=== PATIENT | male | born 1950 | race Caucasian/White ===

== ENCOUNTER 2018-02-18 08:29 | Outpatient (CLI) | payer OTHER | END 2018-02-18 15:00 | disposition home or self-care (01) | LOC: LAB 08:29 → EDBD 08:29 → LAB 15:00 | DX: I10 Essential (primary) hypertension (principal); E78.00 Pure hypercholesterolemia, unspecified; Z13.0 Encounter for screening for diseases of the blood and blood-forming organs and certain disorders involving the immune mechanism; Z13.220 Encounter for screening for lipoid disorders; Z13.29 Encounter for screening for other suspected endocrine disorder; Z12.5 Encounter for screening for malignant neoplasm of prostate ==

== ENCOUNTER 2018-02-19 12:14 | Outpatient (CLI) | payer OTHER | END 2018-02-19 12:30 | disposition home or self-care (01) | LOC: LAB 12:14 | DX: I10 Essential (primary) hypertension (principal); Z13.0 Encounter for screening for diseases of the blood and blood-forming organs and certain disorders involving the immune mechanism; Z13.220 Encounter for screening for lipoid disorders; Z13.29 Encounter for screening for other suspected endocrine disorder; E78.00 Pure hypercholesterolemia, unspecified; Z12.5 Encounter for screening for malignant neoplasm of prostate ==

== ENCOUNTER 2018-03-21 10:27 | Outpatient (CLI) | payer OTHER | END 2018-03-21 15:01 | disposition home or self-care (01) | LOC: TOM 10:27 | DX: J70.5 Respiratory conditions due to smoke inhalation (principal); J44.9 Chronic obstructive pulmonary disease, unspecified ==

== ENCOUNTER 2018-06-02 09:17 | Outpatient (CLI) | payer OTHER | END 2018-06-02 10:29 | disposition home or self-care (01) | LOC: LAB 09:17 | DX: E78.00 Pure hypercholesterolemia, unspecified (principal) ==

== ENCOUNTER 2019-01-20 09:19 | Outpatient (CLI) | payer OTHER | END 2019-01-20 09:27 | disposition home or self-care (01) | LOC: LAB 09:19 | DX: I10 Essential (primary) hypertension (principal); Z13.0 Encounter for screening for diseases of the blood and blood-forming organs and certain disorders involving the immune mechanism; Z13.29 Encounter for screening for other suspected endocrine disorder; Z12.5 Encounter for screening for malignant neoplasm of prostate; E78.00 Pure hypercholesterolemia, unspecified ==

== ENCOUNTER 2020-10-29 07:30 | Outpatient (CLI) | payer OTHER | END 2020-10-29 08:00 | disposition home or self-care (01) | LOC: NUCLEAR 07:30 | PROVIDERS: ATTEND Internal Medicine Cardiovascular Disease | DX: R07.89 Other chest pain (principal) | CPT/HCPCS: 78452; 93017; A9500 ==

== ENCOUNTER 2021-08-12 08:56 | Outpatient (CLI) | payer OTHER | END 2021-08-12 09:04 | disposition home or self-care (01) | LOC: TOM 08:56 | PROVIDERS: ATTEND Specialist | DX: R10.30 Lower abdominal pain, unspecified (principal) ==

== ENCOUNTER 2021-10-23 05:00 | Day surgery (SDC) | payer OTHER ==
[~2021-10-23 05:00] MED LIST: AMLODI PO; PREVACID15 M1 PO; ZETIA10 MG PO; [UNRECOGNIZED DRUG - OTHER]
== END 2021-10-23 12:25 | disposition home or self-care (01) ==
LOC: CIR.AMB 05:00
PROVIDERS: ATTEND Specialist
DX: K40.90 Unilateral inguinal hernia, without obstruction or gangrene, not specified as recurrent (principal); Z20.822 Contact with and (suspected) exposure to COVID-19; I10 Essential (primary) hypertension; E78.5 Hyperlipidemia, unspecified; Z86.16 Personal history of COVID-19
CPT/HCPCS: 49525; C1781

== ENCOUNTER 2023-05-06 11:14 | Outpatient (CLI) | payer OTHER | END 2023-05-06 11:27 | disposition home or self-care (01) | LOC: SONOGRAMA 11:14 | PROVIDERS: ATTEND Specialist | DX: R10.30 Lower abdominal pain, unspecified (principal) ==

== ENCOUNTER 2023-10-16 08:23 | Outpatient (CLI) | payer OTHER ==
[2023-10-16 10:17] LABS: % SATURACION 23.2 % (20-50); ALBUMIN 4.3 gm/dL (3.4-5.0); BILIRUBIN TOTAL 1.36 mg/dL (0.3-1.2); CALCIUM 9.9 mg/dL (8.5-10.1); CREATININE SERUM 1.04 mg/dL (0.70-1.30); FERRITIN 26.6 NG/ML (26-388); GFR 70.4; GLOBULINA 3.4 G/DL (2.4-3.5); POTASSIUM 4.43 mEq/L (3.5-5.1); PROSTATIC SPECIFIC ANTIGEN 1.84 NG/ML (0.010-4.00); T4 FREE 0.99 NG/ML (0.76-1.46); TOTAL PROTEIN 7.7 gm/dL (6.4-8.2); TSH 1.59 uIU/mL (0.358-3.74)
[2023-10-16 10:28] LABS: HEMATOCRIT 40.9 % (39.0-48.0); HEMOGLOBIN 13.8 g/dL (13-16.00); MEAN CELL VOLUME 88.2 fL (80.0-100.00); MEAN CORPUSCULAR HEMOGLOBIN 29.9 pg (27.00-32.0); MEAN CORPUSCULAR HGB CONC 33.8 g/dl (32.0-36.0); PLATELET COUNT 206 K/uL (150-450); RED BLOOD COUNT 4.63 M/uL (4.00-6.00); RED CELL DISTRIBUTION WIDTH 15.7 % (11.5-14.5)
[2023-10-18 09:54] LABS: MANUAL PLATELET COUNT 204
[2023-10-18 09:59] LABS: PLATELET ESTIMATE NORMAL (NORMAL)
[2023-10-18 12:07] LABS: FOLIC ACID > 20.00 ng/ml (4.78-20)
[2023-10-20 15:06] LABS: hgb a 97.6 % (96.4-98.8); hgb a2 2.4 % (1.8-3.2); hgb f 0 % (0.0-2.0); hgb s 0 % (0.0)
[2023-10-21 17:06] LABS: PARIETAL CELL ANTIBODIES 1.5 Units (0.0-20.0); g6pd quant 266 (127-427); rbc 4.81 x10E6/uL (4.14-5.80)
== END 2023-10-16 10:16 | disposition home or self-care (01) ==
LOC: LAB 08:23
PROVIDERS: ATTEND Internal Medicine Hematology & Oncology
DX: D51.3 Other dietary vitamin B12 deficiency anemia (principal); I10 Essential (primary) hypertension; K22.70 Barrett's esophagus without dysplasia; E78.2 Mixed hyperlipidemia; D50.8 Other iron deficiency anemias; R74.02 Elevation of levels of lactic acid dehydrogenase [LDH]; K76.89 Other specified diseases of liver; D63.8 Anemia in other chronic diseases classified elsewhere; D51.0 Vitamin B12 deficiency anemia due to intrinsic factor deficiency; E03.8 Other specified hypothyroidism

== ENCOUNTER 2024-06-10 09:51 | Outpatient (CLI) | payer OTHER ==
[2024-06-10 10:35] LABS: HEMOGLOBIN 14.3 g/dL (13-16.00); MEAN CELL VOLUME 90.6 fL (80.0-100.00); MEAN CORPUSCULAR HEMOGLOBIN 30.1 pg (27.00-32.0); MEAN CORPUSCULAR HGB CONC 33.2 g/dl (32.0-36.0); PLATELET COUNT 232 K/uL (150-450); RED BLOOD COUNT 4.75 M/uL (4.00-6.00)
[2024-06-10 11:39] LABS: ALBUMIN 4.2 gm/dL (3.4-5.0); BILIRUBIN TOTAL 1.34 mg/dL (0.3-1.2); CALCIUM 9.2 mg/dL (8.5-10.1); CREATININE SERUM 0.93 mg/dL (0.70-1.30); GFR 79.87; GLOBULINA 3.3 G/DL (2.4-3.5); POTASSIUM 4.57 mEq/L (3.5-5.1); TOTAL PROTEIN 7.5 gm/dL (6.4-8.2)
[2024-06-10 11:46] LABS: FERRITIN 17.2 NG/ML (26-388)
[2024-06-11 12:17] LABS: FOLIC ACID > 20.00 ng/ml (4.78-20)
[2024-06-12 07:54] LABS: PLATELET ESTIMATE NORMAL (NORMAL)
== END 2024-06-10 09:59 | disposition home or self-care (01) ==
LOC: LAB 09:51
PROVIDERS: ATTEND Internal Medicine Hematology & Oncology
DX: D51.3 Other dietary vitamin B12 deficiency anemia (principal); I10 Essential (primary) hypertension; K22.70 Barrett's esophagus without dysplasia; E78.2 Mixed hyperlipidemia; R79.9 Abnormal finding of blood chemistry, unspecified; D50.8 Other iron deficiency anemias; R74.02 Elevation of levels of lactic acid dehydrogenase [LDH]; K76.89 Other specified diseases of liver; M81.0 Age-related osteoporosis without current pathological fracture

== ENCOUNTER → 2024-07-04 | Outpatient (CLI) | payer OTHER | END | disposition home or self-care (01) | LOC: NUCLEAR 13:10 | PROVIDERS: ATTEND Internal Medicine Hematology & Oncology | DX: M81.0 Age-related osteoporosis without current pathological fracture (principal) ==